=== PATIENT | male | born 1965 | race Caucasian/White ===

== ENCOUNTER 2018-10-10 20:04 | Emergency (ER) | payer SELFPAY ==
[~2018-10-10] VITALS: Ht 175.3 cm; Wt 83.9 kg
[2018-10-10 20:13] VITALS: BP 171/98
--- NOTE | 2018-10-10 20:39 | NUR ---
CALLED PT 3X NO RESPONSE. CHECKED IN LOBBY AND OUTSIDE ER DOORS, NO RESPONSE. PATIENT LEFT WITHOUT BEING SEEN BY DR. BARNARD. NO FURTHER CARE PROVIDED FOR PATIENT.
== END 2018-10-10 20:39 | disposition left against medical advice (07) ==
LOC: MED 20:04
DX: M54.9 Dorsalgia, unspecified (principal); M53.3 Sacrococcygeal disorders, not elsewhere classified; Z53.21 Procedure and treatment not carried out due to patient leaving prior to being seen by health care provider